=== PATIENT | male | born 1955 | race Caucasian/White ===

== ENCOUNTER 2024-11-07 08:17 | Day surgery (SDC) | payer MEDICARE, SELFPAY ==
[2024-11-05 12:25] VITALS: BMI 22.5
[2024-11-07 08:26] VITALS: BP 133/79; PULSE 63; RESP 18; TEMP 36.4; O2SAT 98; BMI 22.7
[2024-11-07] MEDS: Lactated Ringers 1,000 ML 50 ML IVCONT (08:44)
--- NOTE | 2024-11-07 08:46 | P.CONAN_ITS ---
COUNTS INCLUDE 234 BEDS AT THE [facility] Past Medical History Medical History Crohn's disease Nephrolithiasis Surgical History Surgical History H/O colonoscopy History of Problems with Anesthesia: No Social History Social History Household Members: Spouse Patient Tobacco Use Status: Never used Tobacco Have you been hit, kicked, punched, or otherwise hurt by someone within the past year? If so, by whom?: No Are you DNR?: No Advance Directives: No Advance Directives Information Provided: Yes Meds Allergies Allergy/AdvReac Type Severity Reaction Status Date / Time No Known Allergies Allergy Verified 11/05/24 12:25 Active Medications: Current Medications Lactated Ringer's (Lr) 1,000 mls @ 50 mls/hr IVCONT .Q20H YAQUELIN Last Admin: 11/07/24 08:44 Dose: 50 mls/hr Home Medications ?Medication ?Instructions ?Recorded ?Confirmed ?Last Taken ?Type Lactobacillus acidophilus and 1 cap PO DAILY 11/05/24 11/05/24 Unknown History rhamnosus 15 billion cell capsule (Probiotic) infliximab-dyyb 100 mg intravenous 10 mg IV Q8W 11/05/24 11/05/24 Unknown His tory solution (Inflectra) multivitamin 1 tab PO DAILY 11/05/24 11/05/24 Unknown History vitamin B complex 1 tab PO DAILY 11/05/24 11/05/24 Unknown History Exam Height,Weight and Vital Signs: Height 6 ft 4 in Weight 84.45 kg Last Vital Signs Temp 97.6 F 11/07/24 08:26 Pulse 63 11/07/24 08:26 Resp 18 11/07/24 08:26 BP 133/79 11/07/24 08:26 Pulse Ox 98 11/07/24 08:26 O2 Del Method Room Air 11/07/24 08:26 Airway Mallampati Class: III TM Dist: >3cm Neck ROM: Full Loose/Missing/Broken Teeth: No Heart: RRR Lungs: CTA Assessment and Plan Assessment Anesthesia Assessment: Anesthesia Plan Discussed and Chart Reviewed Final Anesthetic Review History of Problems with Anesthesia: No NPO: Yes ASA Class: II Final Preanesthetic Review: Meds/Allgs Chart Reviewed, Consent Obtained/Reviewed and Anes Risks/Benef Reviewed Patient Risk: Low Procedure Risk: Low Anesthetic Plan Anesthetic Plan: MAC: Disposition: Standard PACU
--- NOTE | 2024-11-07 09:24 | P.HPSUR_ITS ---
Pre-Procedural Eval Section A - 24 Hr Update-Section A only Date of Service: 11/07/24 Section B - Complete if H&P > 30 days Chief Complaint: Crohn's disease of small intestine with intestinal Details of Present Illness: see H&P no changes Relevant Family History (Specify if Yes): No Relevant Social History: None Present Medications: see Short Stay Collaborative assessment Medical History: No relevant PMH History of Previous Operations: No relevant previous surgery Allergies: Allergies Allergy/AdvReac Type Severity Reaction Status Date / Time No Known Allergies Allergy Verified 11/05/24 12:25 Review of Systems Sugical H&P ROS: Negative: Constitution, Cardiovascular, Respiratory, Neurological, Psychiatric, Hem-Onc, Allergic/Immunologic, Gastrointestinal, Genitourinary, Musculoskeletal, Integumentary, Endocrine and Eyes/Ears/N ose/Throat Exam Surgical H&P Exam: Normal: HEENT, Normal: Heart, Normal: Lungs, Normal: Extremities, Normal: Abdomen, Normal: Skin and Normal: Neurological Plan Diagnosis/Plan: Unchanged I have reviewed the history and physical and performed a pertinent physical examination on my patient. No changes have occurred unless specified. Time Spent With Patient Time: Total time managing care of this patient today ____ minutes.
[2024-11-07 10:00] VITALS: BP 109/61; PULSE 71; RESP 18; TEMP 36.8; O2SAT 99
[2024-11-07 10:19] VITALS: BP 109/75; PULSE 69; RESP 17; TEMP 36.1; O2SAT 100
--- NOTE | 2024-11-07 10:42 | PC.NURSE ---
all d/c instructions completed by [place] RN.
--- NOTE | 2024-11-07 10:47 | OP_ITS ---
DATE OF SERVICE: 11/07/2024 SURGEON: Hermann Moreno MD PREOPERATIVE DIAGNOSIS: POSTOPERATIVE DIAGNOSIS: PROCEDURE PERFORMED: Colonoscopy to the terminal ilium. ESTIMATED BLOOD LOSS: COMPLICATIONS: ANESTHESIA: Monitored anesthesia care. ASSISTANTS: SPECIMENS: INDICATION: Crohn disease of the small intestine. DESCRIPTION OF PROCEDURE: A history and physical was performed. The risks and benefits of the procedure were explained to the patient, and informed consent was obtained. The patient was placed in the left lateral decubitus position. A digital rectal exam was performed and was found to be normal. The Olympus pediatric video colonoscope was introduced into the rectum and advanced to the cecum. The cecum was identified by transillumination, palpation, and identification of the ileocecal valve. Examination was performed. The scope was removed. He tolerated the procedure well and was returned to the recovery area in stable condition. FINDINGS: The terminal ileum was examined for approximately 25 cm and appeared normal. Biopsies were obtained. The visualized colonic mucosa was normal. There was no evidence of masses, ulcers, or polyps. There was mild sigmoid diverticulosis. Biopsies were obtained throughout the colon. Retroflexed examination was normal. There was no endoscopic evidence of Crohn disease on the small intestine or large intestine examination. IMPRESSION: Crohn disease of the small intestine. RECOMMENDATION: Follow up the biopsy results. MD EDUARDO Gallegos/GEMMA / [id number]
== END 2024-11-07 10:43 | disposition home or self-care (01) ==
PROVIDERS: PCP Nurse Practitioner; Visit Provider Internal Medicine Gastroenterology
PROC: 0DJD8ZZ Inspection of Lower Intestinal Tract, Via Natural or Artificial Opening Endoscopic (ICD-10-PCS; CPT 45378; principal; 2024-11-07 09:40)
DX: K50.012 Crohn's disease of small intestine with intestinal obstruction (principal); K57.30 Diverticulosis of large intestine without perforation or abscess without bleeding; N20.0 Calculus of kidney; Z79.620 Long term (current) use of immunosuppressive biologic; Z79.899 Other long term (current) drug therapy
CPT/HCPCS: 45380; 88305; J2003; J2704